=== PATIENT | male | born 1960 | race African-American/Black ===

== ENCOUNTER 2018-05-16 11:32 | Observation (INO) | payer OTHER ==
[2018-05-16] MEDS ORDERED: NITROGLYCERIN OINT 1 INCH/GM PACKET TOPICAL STA (12:04)
[2018-05-16] MEDS ORDERED: ASPIRIN 81 MG PO STA (12:04)
--- NOTE | 2018-05-16 12:10 | ED ---
General Adult HPI - General Chief complaint: Chest Pain Stated complaint: chest pain Time Seen by Provider: 05/16/18 11:55 Source: patient, RN notes reviewed Mode of arrival: ambulatory Limitations: no limitations - History of Present Illness Initial comments: This is a 57 her old male who presents emergency Department complaining of chest pain. Patient states started a few days ago and usually lasts about 10 minutes and been intermittent. Patient states today it came on at work and was occurring much more frequently but still lasting only about 10 minutes. Patient states he was short of breath when it occurred. Patient states the pain radiates to his back as well. Patient denies any diaphoretic episodes associated with the pain. Patient denies any nausea. Patient denied any worsening of the pain with exertion though he has not really exerted himself much. Patient denies any abdominal pain. Patient denies headache patient denies numbness weakness. Patient denies any recent fever chills or cough per patient denies any swelling to legs or calf tenderness. Patient states he is a diabetic with hypertension and does have some family history of heart disease. - Related Data Home Medications Medication Instructions Recorded Confirmed Lisinopril-Hctz 20-25 mg 1 tab PO DAILY 05/16/18 05/16/18 [Zestoretic 20-25] sitaGLIPtin [Januvia] 100 mg PO DAILY 05/16/18 05/16/18 Allergies Allergy/AdvReac Type Severity Reaction Status Date / Time No Known Allergies Allergy Verified 05/16/18 11:50 Review of Systems ROS Statement: Those systems with pertinent positive or pertinent negative responses have been documented in the HPI. ROS Other: All systems not noted in ROS Statement are negative. Past Medical History Past Medical History: Diabetes Mellitus, Hypertension History of Any Multi-Drug Resistant Organisms: None Reported Past Surgical History: No Surgical Hx Reported Past Psychological History: Depression Smoking Status: Never smoker Past Alcohol Use History: Rare Past Drug Use History: None Reported General Exam - General Exam Comments Initial Comments: GENERAL: Patient is well-developed and well-nourished. Patient is nontoxic and well- hydrated and is in mild distress. ENT: Neck is soft and supple. No significant lymphadenopathy is noted. Oropharynx is clear. Moist mucous membranes. Neck has full range of motion without eliciting any pain. EYES: The sclera were anicteric and conjunctiva were pink and moist. Extraocular movements were intact and pupils were equal round and reactive to light. Eyelids were unremarkable. PULMONARY: Unlabored respirations. Good breath sounds bilaterally. No audible rales rhonchi or wheezing was noted. CARDIOVASCULAR: There is a regular rate and rhythm without any murmurs gallops or rubs. ABDOMEN: Soft and nontender with normal bowel sounds. No palpable organomegaly was noted. There is no palpable pulsatile mass. SKIN: Skin is clear with no lesions or rashes and otherwise unremarkable. NEUROLOGIC: Patient is alert and oriented x3. Cranial nerves II through XII are grossly intact. Motor and sensory are also intact. Normal speech, volume and content. Symmetrical smile. MUSCULOSKELETAL: Normal extremities with adequate strength and full range of motion. No lower extremity swelling or edema. No calf tenderness. LYMPHATICS: No significant lymphadenopathy is noted PSYCHIATRIC: Normal psychiatric evaluation. Normal interpersonal interactions appears functionally intact in deals appropriately with others. No signs of depression. No signs of anxiety. Limitations: no limitations Course Vital Signs 05/16/18 05/16/18 11:47 13:34 Temperature 97.9 F Pulse Rate 71 Respiratory 18 Rate Blood Pressure 156/96 153/98 O2 Sat by Pulse 98 Oximetry Medical Decision Making - Medical Decision Making EKG shows normal sinus rhythm at 63 bpm KS interval 170 QRS is under 2 QT interval is 416 QTC is 425 per patient's EKG shows no ST segment elevation or depression or T wave abnormalities are noted. Chest x-ray shows no acute abnormality. Patient is exhibiting stable angina/started the patient heparin. I called Dr. Tavera he agreed to admit the patient admitted the patient I wrote admitting orders. I consult cardiology I continue the heparin and aspirin and Nitropaste on the floor. He is currently chest pain-free. - Lab Data Result diagrams: 05/16/18 12:27 05/16/18 12:27 Lab Results 05/16/18 05/16/18 05/16/18 Range/Units 12:27 12:27 12:27 WBC 7.4 (3.8-10.6) k/uL RBC 4.31 (4.30-5.90) m/uL Hgb 13.0 (13.0-17.5) gm/dL Hct 37.1 L (39.0-53.0) % MCV 86.0 (80.0-100.0) fL MCH 30.2 (25.0-35.0) pg MCHC 35.1 (31.0-37.0) g/dL RDW 12.4 (11.5-15.5) % Plt Count 184 (150-450) k/uL Neutrophils % 66 % Lymphocytes % 24 % Monocytes % 6 % Eosinophils % 2 % Basophils % 1 % Neutrophils # 4.8 (1.3-7.7) k/uL Lymphocytes # 1.8 (1.0-4.8) k/uL Monocytes # 0.4 (0-1.0) k/uL Eosinophils # 0.2 (0-0.7) k/uL Basophils # 0.0 (0-0.2) k/uL PT (9.0-12.0) sec INR (<1.2) APTT (22.0-30.0) sec Sodium 139 (137-145) mmol/L Potassium 4.4 (3.5-5.1) mmol/L Chloride 106 (98-107) mmol/L Carbon Dioxide 23 (22-30) mmol/L Anion Gap 10 mmol/L BUN 18 (9-20) mg/dL Creatinine 1.42 H (0.66-1.25) mg/dL Est GFR (CKD-EPI)AfAm 64 (>60 ml/min/1.73 sqM) Est GFR (CKD-EPI)NonAf 55 (>60 ml/min/1.73 sqM) Glucose 166 H (74-99) mg/dL Calcium 9.7 (8.4-10.2) mg/dL Magnesium 1.8 (1.6-2.3) mg/dL Total Bilirubin 0.7 (0.2-1.3) mg/dL AST 21 (17-59) U/L ALT 28 (21-72) U/L Alkaline Phosphatase 53 (38-126) U/L Total Creatine Kinase 251 H (55-170) U/L CK-MB (CK-2) 1.5 (0.0-2.4) ng/mL CK-MB (CK-2) Rel Index 0.6 Troponin I <0.012 (0.000-0.034) ng/mL Total Protein 7.4 (6.3-8.2) g/dL Albumin 4.0 (3.5-5.0) g/dL 05/16/18 Range/Units 12:27 WBC (3.8-10.6) k/uL RBC (4.30-5.90) m/uL Hgb (13.0-17.5) gm/dL Hct (39.0-53.0) % MCV (80.0-100.0) fL MCH (25.0-35.0) pg MCHC (31.0-37.0) g/dL RDW (11.5-15.5) % Plt Count (150-450) k/uL Neutrophils % % Lymphocytes % % Monocytes % % Eosinophils % % Basophils % % Neutrophils # (1.3-7.7) k/uL Lymphocytes # (1.0-4.8) k/uL Monocytes # (0-1.0) k/uL Eosinophils # (0-0.7) k/uL Basophils # (0-0.2) k/uL PT 10.4 (9.0-12.0) sec INR 1.1 (<1.2) APTT 24.6 (22.0-30.0) sec Sodium (137-145) mmol/L Potassium (3.5-5.1) mmol/L Chloride (98-107) mmol/L Carbon Dioxide (22-30) mmol/L Anion Gap mmol/L BUN (9-20) mg/dL Creatinine (0.66-1.25) mg/dL Est GFR (CKD-EPI)AfAm (>60 ml/min/1.73 sqM) Est GFR (CKD-EPI)NonAf (>60 ml/min/1.73 sqM) Glucose (74-99) mg/dL Calcium (8.4-10.2) mg/dL Magnesium (1.6-2.3) mg/dL Total Bilirubin (0.2-1.3) mg/dL AST (17-59) U/L ALT (21-72) U/L Alkaline Phosphatase (38-126) U/L Total Creatine Kinase (55-170) U/L CK-MB (CK-2) (0.0-2.4) ng/mL CK-MB (CK-2) Rel Index Troponin I (0.000-0.034) ng/mL Total Protein (6.3-8.2) g/dL Albumin (3.5-5.0) g/dL Critical Care Time Critical Care Time: Yes Total Critical Care Time: 35 Disposition Clinical Impression: Unstable angina pectoris Disposition: ADMITTED IP TO THIS HOSP Referrals: Kamille Clinton DO [Primary Care Provider] - 1-2 days Time of Disposition: 14:02
[2018-05-16 12:45] LABS: Basophils % (A) 1 %; Eosinophils # (A) 0.2 k/uL (0-0.7); Eosinophils % (A) 2 %; HCT 37.1 % (39.0-53.0); Lymphocytes # (A) 1.8 k/uL (1.0-4.8); Lymphocytes % (A) 24 %; MCH 30.2 pg (25.0-35.0); MCHC 35.1 g/dL (31.0-37.0); Mean Platelet Volume 7.8; Monocytes # (A) 0.4 k/uL (0-1.0); Monocytes % (A) 6 %; Neutrophils # (A) 4.8 k/uL (1.3-7.7); Neutrophils % (A) 66 %; Platelet Count 184 k/uL (150-450); RBC 4.31 m/uL (4.30-5.90); RDW 12.4 % (11.5-15.5); WBC 7.4 k/uL (3.8-10.6)
[2018-05-16 12:46] LABS: INR 1.1 (<1.2); Partial Thromboplastin Time 24.6 sec (22.0-30.0); Prothrombin Time 10.4 sec (9.0-12.0)
[2018-05-16 12:50] LABS: Calcium 9.7 mg/dL (8.4-10.2); Magnesium 1.8 mg/dL (1.6-2.3); Potassium 4.4 mmol/L (3.5-5.1); Total Bilirubin 0.7 mg/dL (0.2-1.3); Total Protein 7.4 g/dL (6.3-8.2)
--- NOTE | 2018-05-16 12:50 | XR ---
EXAMINATION TYPE: XR chest 2V DATE OF EXAM: 05/16/2018 COMPARISON: None INDICATION: Chest pain TECHNIQUE: Frontal and lateral views of the chest are obtained. FINDINGS: The heart size is normal. The pulmonary vasculature is normal. The lungs are clear. IMPRESSION: 1. No acute pulmonary process.
[2018-05-16 13:00] LABS: Creatine Kinase 251 U/L (55-170)
[2018-05-16 13:13] LABS: Creatine Kinase MB 1.5 ng/mL (0.0-2.4); Troponin I <0.012 ng/mL (0.000-0.034)
[2018-05-16] MEDS ORDERED: HEPARIN SODIUM,PORCINE 5,000 UNIT/ML 1 ML VIAL IV ONE (13:52)
[2018-05-16] MEDS ORDERED: HEPARIN SOD,PORK IN 0.45% NACL 25,000 UNIT in 0.45% NACL 1 500ML.BAG IV SCH (14:00)
[2018-05-16] MEDS ORDERED: NITROGLYCERIN SL TABS 0.4 MG TAB SUBLINGUAL PRN (14:03)
--- NOTE | 2018-05-16 15:49 | P.HPIM ---
History of Present Illness H&P Date: 05/16/18 Chief Complaint: Chest pain This is a 57-year-old male, patient of [facility]. He has a known past medical history of diabetes mellitus type 2 and hypertension. He presents to the emergency room with complaints of chest pain. Patient was seen and examined in the ER. He reports that he's had intermittent chest pain for about 3 days. The pain is located in the left side of his chest it does radiate to his back at times. Occasionally has some shortness of breath. Denies any nausea or vomiting. He reports the chest pain lasts for about 10 minutes. There is no associated symptoms to worsen pain or decrease the pain. He is concerned because he is diabetic and wanted to have it checked out. Patient also reports that Sunday morning he had awoken with pain behind his left knee and was also having the intermittent chest pain. As the day progressed the pain behind the left knee subsided. And has not reoccurred. He denies any recent traveling for long sets. Patient denies any cough, fever, chills, sweats. Denies any nausea vomiting bowel movement changes or urinary symptoms. First troponin was negative EKG shows a normal sinus rhythm chest x-rays negative. Creatinine is elevated at 1.42. Patient reports back in October at Dr. Clinton's office they noted that he had a rise in his creatinine and his metformin was discontinued at that time. He was started on Januvia. He's been placed on aspirin, IV heparin as well as on nitro paste for his chest pain. Cardiology has been consulted. Patient denies ever having any stress test. After discussing with [facility] at present the patient does have some chronic kidney disease. In May 2017 creatinine was 1.4 in September 2017 creatinine 1.6. Nursing staff from [facility] reports that metformin was discontinued in October 2017. Review of Systems Please refer to HPI otherwise unremarkable Past Medical History Past Medical History: Diabetes Mellitus, Hypertension History of Any Multi-Drug Resistant Organisms: None Reported Past Surgical History: No Surgical Hx Reported Past Psychological History: Depression Smoking Status: Never smoker Past Alcohol Use History: Rare Past Drug Use History: None Reported Medications and Allergies Home Medications Medication Instructions Recorded Confirmed Type Lisinopril-Hctz 20-25 mg 1 tab PO DAILY 05/16/18 05/16/18 History [Zestoretic 20-25] sitaGLIPtin [Januvia] 100 mg PO DAILY 05/16/18 05/16/18 History Allergies Allergy/AdvReac Type Severity Reaction Status Date / Time No Known Allergies Allergy Verified 05/16/18 11:50 Physical Exam Vitals: Vital Signs Temp Pulse Resp BP Pulse Ox 05/16/18 13:34 153/98 05/16/18 11:47 97.9 F 71 18 156/96 98 Intake and Output 05/16/18 05/16/18 05/16/18 06:59 14:59 22:59 Other: Weight 117.934 kg Head normocephalic Neck supple Lungs clear to auscultation bilaterally no wheezing or crackles. No chest wall tenderness Heart regular rate and rhythm S1-S2, no rub or gallop Abdomen is soft nontender nondistended positive bowel sounds no hepatosplenomegaly Extremities no edema tenderness or leg tenderness with palpation Neuro alert and orientated to 3 Results CBC & Chem 7: 05/16/18 12:27 05/16/18 12:27 Labs: Abnormal Lab Results - Last 24 Hours (Table) 05/16/18 05/16/18 05/16/18 Range/Units 12:27 12:27 12:27 Hct 37.1 L (39.0-53.0) % Creatinine 1.42 H (0.66-1.25) mg/dL Glucose 166 H (74-99) mg/dL Total Creatine Kinase 251 H (55-170) U/L Assessment and Plan Assessment: 1. Chest pain: First troponin is negative. Cardiology has been consulted. EKG normal sinus rhythm. Chest x-rays negative. Cardiac workup in progress. Continue with IV heparin and Nitropaste. Check lipid panel. Continue with telemetry monitoring. Check d-dimer patient also had recent pain behind the left leg with chest pains. Also will Doppler the left leg to rule out DVT 2. Diabetes mellitus type 2: Patient had metformin discontinued in october due to a rising creatinine in the outpatient setting and was started on Januvia. Check A1c. Add sliding scale coverage 3. Essential hypertension: continue Zestoretic 4. Chronic kidney disease, stage 2. Creatinine in May 2017 have been 1.4 in September 2017 creatinine was 1.6. Will monitor closely while we continue the Zestoretic GI prophylaxis Pepcid and DVT prophylaxis IV heparin Time with Patient: Greater than 30 (Greater than 60% of the total time spent in counseling and coordination of care.I performed an examination of the patient and discussed their management with the physician Supply Cataloguer. I have reviewed the Physician Supply Cataloguer's notes and agree with the documented findings and plan of care)
[2018-05-16 17:35] LABS: Glucose,Whole Blood 143 mg/dL (75-99)
--- NOTE | 2018-05-16 18:04 | US ---
EXAMINATION TYPE: US venous doppler duplex LE LT DATE OF EXAM: 05/16/2018 5:54 PM COMPARISON: NONE CLINICAL HISTORY: leg pain, rule out DVT. Left leg pain, exam done portable. SIDE PERFORMED: Left TECHNIQUE: The lower extremity deep venous system is examined utilizing real time linear array sonog ivett with graded compression, doppler sonography and color-flow sonography. VESSELS IMAGED: External Iliac Vein (EIV) Common Femoral Vein Deep Femoral Vein Greater Saphenous Vein * Femoral Vein Popliteal Vein Small Saphenous Vein * Proximal Calf Veins (* superficial vessels) Left Leg: Appears negative for DVT IMPRESSION: Normal exam. No evidence of deep venous thrombosis in the left leg.
[2018-05-16 19:02] LABS: Creatine Kinase 228 U/L (55-170)
[2018-05-16 19:16] LABS: Creatine Kinase MB 1.3 ng/mL (0.0-2.4); Troponin I <0.012 ng/mL (0.000-0.034)
[2018-05-16 20:22] LABS: Glucose,Whole Blood 247 mg/dL (75-99)
[2018-05-16] MEDS: NITROGLYCERIN OINT 1 INCH/GM PACKET TOPICAL SCH (21:09)
[2018-05-16] MEDS: INSULIN ASPART 100 UNIT/ML 1 ML 10 ML VIAL SQ SCH ×2 (21:28)
[2018-05-17] MEDS: NITROGLYCERIN OINT 1 INCH/GM PACKET TOPICAL SCH ×2 (00:14→05:58)
[2018-05-17 01:17] LABS: Creatine Kinase 204 U/L (55-170)
[2018-05-17 01:29] LABS: Troponin I <0.012 ng/mL (0.000-0.034)
[2018-05-17 05:13] VITALS: RESP 18
[2018-05-17 06:02] LABS: Hemoglobin A1C 7.3 % (4.0-6.0)
[2018-05-17 06:45] LABS: Glucose,Whole Blood 177 mg/dL (75-99)
[2018-05-17 07:37] LABS: Basophils # (A) 0.1 k/uL (0-0.2); Basophils % (A) 1 %; Eosinophils # (A) 0.2 k/uL (0-0.7); Eosinophils % (A) 3 %; HCT 38.2 % (39.0-53.0); Lymphocytes # (A) 1.7 k/uL (1.0-4.8); Lymphocytes % (A) 22 %; MCH 29.7 pg (25.0-35.0); MCHC 34.1 g/dL (31.0-37.0); Mean Platelet Volume 7.7; Monocytes # (A) 0.4 k/uL (0-1.0); Monocytes % (A) 6 %; Neutrophils # (A) 5.2 k/uL (1.3-7.7); Neutrophils % (A) 67 %; Platelet Count 177 k/uL (150-450); RBC 4.39 m/uL (4.30-5.90); RDW 12.5 % (11.5-15.5); WBC 7.8 k/uL (3.8-10.6)
[2018-05-17 08:13] LABS: Albumin 3.8 g/dL (3.5-5.0); Calcium 9.3 mg/dL (8.4-10.2); Potassium 4.4 mmol/L (3.5-5.1); Total Bilirubin 0.7 mg/dL (0.2-1.3); Total Protein 7.1 g/dL (6.3-8.2)
[2018-05-17] MEDS: INSULIN ASPART 100 UNIT/ML 1 ML 10 ML VIAL SQ SCH ×2 (08:18→13:27)
[2018-05-17] MEDS ORDERED: LINAGLIPTIN 5 MG TABLET PO SCH (09:00)
[2018-05-17] MEDS ORDERED: FAMOTIDINE 20 MG TAB PO SCH (09:00)
[2018-05-17] MEDS ORDERED: LISINOPRIL 20 MG TAB PO SCH (09:00)
[2018-05-17] MEDS ORDERED: ASPIRIN 325 MG TAB PO SCH (09:00)
[2018-05-17] MEDS ORDERED: ASPIRIN 81 MG PO SCH (09:00)
[2018-05-17] MEDS ORDERED: LISINOPRIL-HCTZ 20-25 MG 1 EACH TAB PO SCH (09:00)
--- NOTE | 2018-05-17 10:17 | ECHOF ---
Referral Reason:cp MEASUREMENTS -------- HEIGHT: 162.6 cm WEIGHT: 120.7 kg BP: IVSd: 1.5 cm (0.6 - 1.1) LVIDd: 3.4 cm (3.9 - 5.3) LVPWd: 1.7 cm (0.6 - 1.1) IVSs: 1.7 cm LVIDs: 3.5 cm LVPWs: 1.3 cm LA Diam: 4.0 cm (2.7 - 3.8) LAESV Index (A-L): 27.27 ml/m Ao Diam: 3.3 cm (2.0 - 3.7) AV Cusp: 1.7 cm (1.5 - 2.6) LA Diam: 3.5 cm (2.7 - 3.8) MV EXCURSION: 23.254 mm (> 18.000) MV EF SLOPE: 127 mm/s (70 - 150) EPSS: 0.6 cm MV E Gabe: 0.65 m/s MV DecT: 190 ms MV A Gabe: 0.75 m/s MV E/A Ratio: 0.87 RAP: 5.00 mmHg RVSP: 30.57 mmHg FINDINGS -------- Sinus rhythm. This was a technically good study. Grossly normal LV size and systolic function. Unable to comment on regional wall motion. The left v entricular size is normal. There is moderate concentric left ventricular hypertrophy. Overall lef t ventricular systolic function is low-normal with, an EF between 50 - 55 %. The right ventricle is normal in size. The left atrial size is normal. The right atrial size is normal. The aortic valve is trileaflet, and appears structurally normal. No aortic stenosis or regurgitation. Mild mitral annular calcification present. Mild mitral regurgitation is present. Mild tricuspid regurgitation present. There is no evidence of pulmonary hypertension. The right v entricular systolic pressure, as measured by Doppler, is 30.57mmHg. There is no pulmonic regurgitation present. The aortic root size is normal. There is no pericardial effusion. CONCLUSIONS -------- 1. Grossly normal LV size and systolic function. Unable to comment on regional wall motion. 2. The left ventricular size is normal. 3. There is moderate concentric left ventricular hypertrophy. 4. Overall left ventricular systolic function is low-normal with, an EF between 50 - 55 %. 5. The right ventricle is normal in size. 6. The left atrial size is normal. 7. The right atrial size is normal. 8. The aortic valve is trileaflet, and appears structurally normal. No aortic stenosis or regurgitati on. 9. Mild mitral annular calcification present. 10. Mild mitral regurgitation is present. 11. Mild tricuspid regurgitation present. 12. There is no evidence of pulmonary hypertension. 13. The right ventricular systolic pressure, as measured by Doppler, is 30.57mmHg. 14. There is no pulmonic regurgitation present. 15. The aortic root size is normal. 16. There is no pericardial effusion. HEAVY THREADER: Kori Williamson RDCS
[2018-05-17] MEDS ORDERED: amLODIPine 10 MG TAB PO SCH (11:15)
[2018-05-17] MEDS ORDERED: ATORVASTATIN 40 MG TAB PO SCH (11:15)
--- NOTE | 2018-05-17 11:24 | P.CRDCN ---
History of Present Illness History of present illness: This is a pleasant 57-year-old male past medical history significant for hypertension and diabetes mellitus. He denies history of coronary artery disease or dyslipidemia. We have been asked to see him in consultation for chest pain. He states for the previous 3 days he has been experiencing a pressure like sensation in the mid-sternal region. The discomfort comes with no specific aggravating factor and lasts approximately 5- 10 minutes. Going away on its own with no specific alleviating factors. This has been intermittent at rest as well as with exertion. Sometimes the pain radiates through to the back. He denies shortness of breath, dizziness, nausea, vomiting or palpitations. No radiation to the arm, neck or jaw. EKG reveals sinus mechanism with no acute ST or T-wave abnormalities. Chest xray negative for an acute cardiopulmonary process. Laboratory data reviewed, WBC 7.8, hemoglobin 13, platelets 177, potassium 4.4, creatinine 1.56, magnesium 1.8, cardiac enzymes negative x3, LDL 146, HDL 35, total cholesterol 207. Current cardiac medications include zestoretic 20/25 mg daily. He is not on a statin at home. At the time of my exam: CONSTITUTIONAL: Denies fever. Denies chills. EYES: Denies blurred vision. Denies vision changes. Denies eye pain. EARS, NOSE, MOUTH & THROAT: Denies headache. Denies sore throat. Denies ear pain. CARDIOVASCULAR: Denies chest pain. Denies shortness of breath. Denies orthopnea. Denies PND. Denies palpitations. RESPIRATORY: Denies cough. GASTROINTESTINAL: Denies abdominal pain. Denies diarrhea. Denies constipation. Denies nausea. Denies vomiting. MUSCULOSKELETAL: Denies myalgias. INTEGUMENTARY: Denies pruitis. Denies rash. NEUROLOGIC: Denies numbness. Denies tingling. Denies weakness. PSYCHIATRIC: Denies anxiety. Denies depression. ENDOCRINE: Denies fatigue. Denies weight change. Denies polydipsia. Denies polyurina. GENITOURINARY: Denies burning, hematuria or urgency with micturation. HEMATOLOGIC: Denies history of anemia. Denies bleeding. Blood pressure 165/102 heart rate 68 afebrile maintaining oxygen saturation on room air GENERAL: This is a 57-year-old -[place] male in no apparent distress at the time of my examination. HEENT: Head is atraumatic, normocephalic. Pupils are equal, round. Sclerae anicteric. Conjunctivae are clear. Mucous membranes of the mouth are moist. Neck is supple. There is no jugular venous distention. No carotid bruit is heard. LUNGS: Clear to auscultation no wheezes, rales or rhonchi. No chest wall tenderness is noted on palpation or with deep breathing. HEART: Regular rate and rhythm without murmurs, rubs or gallops. S1 and S2 heard. ABDOMEN: Soft, nontender. Bowel sounds are heard. No organomegaly noted. EXTREMITIES: No evidence of peripheral edema and no calf tenderness noted. VASCULAR: Radial and dorsalis pedis pulses palpated, no evidence of clubbing. NEUROLOGIC: Patient is awake, alert and oriented x3. ASSESSMENT Chest pain, atypical. An acute coronary event has been ruled out with no EKG evidence of ischemia negative cardiac enzymes. Hypertension, uncontrolled Diabetes mellitus Dyslipidemia Chronic kidney disease, GFR 57 PLAN Obtain 2D echocardiogram and doppler study to assess cardiac structure and function. Perform stress echocardiogram to assess for stress induced ischemia. Start him on atorvastatin 40 mg daily, follow up with LFT's in 3 months. Change his blood pressure regiemn to amlodipine 10 mg daily. Discontinue zestoretic. Advised him to obtain blood pressure cuff and check his blood pressures daily at home. Keep a journal of his readings for his follow up appointment with Dr. Cortes. If stress test is normal he is stable from a cardiac perspective. Thank you kindly for this consultation. Nurse Practitioner note has been reviewed, I agree with a documented findings and plan of care. Patient was seen and examined. Past Medical History Past Medical History: Diabetes Mellitus, Hypertension Additional Past Medical History / Comment(s): 05/16/18 pt wants flu vaccine this admit. History of Any Multi-Drug Resistant Organisms: None Reported Past Surgical History: No Surgical Hx Reported Past Anesthesia/Blood Transfusion Reactions: No Reported Reaction Past Psychological History: Depression Smoking Status: Never smoker Past Alcohol Use History: Rare Past Drug Use History: None Reported - Past Family History Mother Family Medical History: Diabetes Mellitus, Hypertension Father Family Medical History: Diabetes Mellitus Medications and Allergies Home Medications Medication Instructions Recorded Confirmed Type Lisinopril-Hctz 20-25 mg 1 tab PO DAILY 05/16/18 05/16/18 History [Zestoretic 20-25] sitaGLIPtin [Januvia] 100 mg PO DAILY 05/16/18 05/16/18 History Allergies Allergy/AdvReac Type Severity Reaction Status Date / Time No Known Allergies Allergy Verified 05/16/18 11:50 Physical Exam Vitals: Vital Signs Temp Pulse Pulse Resp BP BP Pulse Ox 05/17/18 07:19 98.0 F 60 18 165/102 98 05/17/18 04:00 97.9 F 62 18 143/95 100 05/17/18 03:46 16 05/17/18 00:00 16 05/16/18 23:36 98.5 F 86 16 151/94 99 05/16/18 20:00 98.1 F 82 16 149/77 98 05/16/18 17:55 98 05/16/18 17:45 98.0 F 68 18 161/99 100 05/16/18 17:00 65 18 153/77 100 05/16/18 16:45 65 18 139/95 99 05/16/18 16:28 68 18 149/94 98 05/16/18 16:00 67 18 166/91 99 05/16/18 13:34 153/98 05/16/18 11:47 97.9 F 71 18 156/96 98 Intake and Output 05/16/18 05/17/18 05/17/18 22:59 06:59 14:59 Intake Total 118 Balance 118 Intake: Oral 118 Other: # Voids 1 2 Weight 120.7 kg Results 05/17/18 07:17 05/17/18 07:17 Cardiac Enzymes 05/16/18 05/16/18 05/16/18 Range/Units 12:27 12:27 18:07 AST 21 (17-59) U/L CK-MB (CK-2) 1.5 1.3 (0.0-2.4) ng/mL Troponin I <0.012 <0.012 (0.000-0.034) ng/mL 05/17/18 Range/Units 00:45 AST (17-59) U/L CK-MB (CK-2) 1.0 (0.0-2.4) ng/mL Troponin I <0.012 (0.000-0.034) ng/mL Coagulation 05/16/18 Range/Units 12:27 PT 10.4 (9.0-12.0) sec APTT 24.6 (22.0-30.0) sec CBC 05/16/18 05/17/18 Range/Units 12:27 07:17 WBC 7.4 7.8 (3.8-10.6) k/uL RBC 4.31 4.39 (4.30-5.90) m/uL Hgb 13.0 13.0 (13.0-17.5) gm/dL Hct 37.1 L 38.2 L (39.0-53.0) % Plt Count 184 177 (150-450) k/uL Comprehensive Metabolic Panel 05/16/18 Range/Units 12:27 Sodium 139 (137-145) mmol/L Potassium 4.4 (3.5-5.1) mmol/L Chloride 106 (98-107) mmol/L Carbon Dioxide 23 (22-30) mmol/L BUN 18 (9-20) mg/dL Creatinine 1.42 H (0.66-1.25) mg/dL Glucose 166 H (74-99) mg/dL Calcium 9.7 (8.4-10.2) mg/dL AST 21 (17-59) U/L ALT 28 (21-72) U/L Alkaline Phosphatase 53 (38-126) U/L Total Protein 7.4 (6.3-8.2) g/dL Albumin 4.0 (3.5-5.0) g/dL Current Medications Generic Name Dose Route Start Last Admin Trade Name Freq PRN Reason Stop Dose Admin Aspirin 325 mg 05/17/18 09:00 Aspirin PO DAILY [facility] Famotidine 20 mg 05/17/18 09:00 Pepcid PO DAILY [facility] Lisinopril/HCTZ 1 each 05/17/18 09:00 Zestoretic 20-25 PO DAILY [facility] Heparin Sodium/Sodium Chloride 500 mls @ 20 mls/hr 05/16/18 14:00 05/16/18 16 :27 25,000 unit/ Sodium Chloride IV Not Given .Q24H CHELLE Protocol 8.48 UNITS/KG/HR Insulin Aspart 0 unit 05/16/18 17:30 05/16/18 21:28 Novolog SQ 5 unit ACHS CHELLE Administration Protocol Linagliptin 5 mg 05/17/18 09:00 Tradjenta PO DAILY CHELLE Nitroglycerin 1 inch 05/16/18 18:00 05/17/18 05:58 Nitro-Bid Oint TOPICAL Not Given Q6HR [facility] Nitroglycerin 0.4 mg 05/16/18 14:03 Nitrostat SUBLINGUAL Q5M PRN Chest Pain Intake and Output 05/16/18 05/17/18 05/17/18 22:59 06:59 14:59 Intake Total 118 Balance 118 Intake: Oral 118 Other: # Voids 1 2 Weight 120.7 kg 05/17/18 07:17 05/16/18 12:27
[2018-05-17 11:33] VITALS: PULSE 79; TEMP 97.7
[2018-05-17 11:43] LABS: Glucose,Whole Blood 165 mg/dL (75-99)
--- NOTE | 2018-05-17 12:11 | ECHOS ---
STRESS ECHOCARDIOGRAM INDICATIONS: Chest pain BASELINE HEART RATE: 62 BASELINE BLOOD PRESSURE: 153/68 MAXIMUM HEART RATE: 150 MAXIMUM BLOOD PRESSURE: 214/85 85% MPHR: 139 100% MPHR: 164 METS: 6.0 MAXIMUM STAGE REACHED: 2 TOTAL EXERCISE TIME: 5:45 CLINICAL INFORMATION: Baseline EKG shows sinus rhythm, normal axis, normal intervals. Patient exercised on Dyllan protocol for a total of 5 minutes and 45 seconds achieving 6 METs, 91% of predicted maximal heart rate without chest pain or diagnostic ST-segment depression. Baseline echo shows normal left ventricular size, wall motion, and systolic function. Postexercise, there is normal hyperdynamic response of all segments of myocardium noted. CONCLUSIONS: 1. Limited exercise tolerance. 2. Negative stress test by EKG criteria. 3. Negative stress echo. MMODL / IJN: [id number] /
[2018-05-17 13:36] VITALS: BP 159/75
--- NOTE | 2018-05-17 13:50 | P.DS ---
Providers Date of admission: 05/16/18 14:04 Expected date of discharge: 05/17/18 Attending physician: Jaime Tavera Consults: 05/16/18 14:03 Consult Physician Urgent Consulting Provider: [facility] Consult Reason/Comments: Unstable angina Do you want consulting provider notified?: Yes Primary care physician: Kamille Clinton [facility] Course: Discharge diagnosis 1. Chest pain: CA ruled out. Troponins negative 3 sets. EKG normal sinus rhythm. Chest x-rays negative. D-dimer within normal range. Stress echo was negative. Per cardiology stress echo showed no wall motion abnormality. Echo shows an EF of 50-55%. Cardiology has cleared patient for discharge. 2. Diabetes mellitus type 2: Patient had metformin discontinued in october due to a rising creatinine in the outpatient setting and was started on Januvia. A1c 7.3 3. Essential hypertension: Uncontrolled blood pressures. Cardiology has discontinue the Zestoretic and added Norvasc 10 mg daily. Prior to Norvasc blood pressure was 180/102. After Norvasc blood pressure 159/75 4. Chronic kidney disease, stage 2. Creatinine in May 2017 have been 1.4 in September 2017 creatinine was 1.6. Creatinine at discharge 1.56. Zestoretic discontinued during this admission per cardiology Hospital course This is a 57-year-old male, patient of [facility]. He has a known past medical history of diabetes mellitus type 2 and hypertension. He presents to the emergency room with complaints of chest pain. Patient was seen and examined in the ER. He reports that he's had intermittent chest pain for about 3 days. The pain is located in the left side of his chest it does radiate to his back at times. Occasionally has some shortness of breath. Denies any nausea or vomiting. He reports the chest pain lasts for about 10 minutes. There is no associated symptoms to worsen pain or decrease the pain. He is concerned because he is diabetic and wanted to have it checked out. Patient also reports that Sunday morning he had awoken with pain behind his left knee and was also having the intermittent chest pain. As the day progressed the pain behind the left knee subsided. And has not reoccurred. He denies any recent traveling for long sets. Patient denies any cough, fever, chills, sweats. Denies any nausea vomiting bowel movement changes or urinary symptoms. First troponin was negative EKG shows a normal sinus rhythm chest x-rays negative. Creatinine is elevated at 1.42. Patient reports back in October at Dr. Clinton's office they noted that he had a rise in his creatinine and his metformin was discontinued at that time. He was started on Januvia. He's been placed on aspirin, IV heparin as well as on nitro paste for his chest pain. Cardiology has been consulted. Patient denies ever having any stress test. After discussing with [facility] at present the patient does have some chronic kidney disease. In May 2017 creatinine was 1.4 in September 2017 creatinine 1.6. Nursing staff from [facility] reports that metformin was discontinued in October 2017. Patient underwent cardiac workup troponins were negative 3 sets. Stress echo was negative. Patient has been chest pain-free. Cardiology has cleared him for discharge. During this admission Lipitor 40 mg daily was added and Norvasc 10 mg daily. Patient did have uncontrolled blood pressures during this admission. Cardiology recommended to Norvasc 10 mg daily and discontinue the Zestoretic. Recommend to continue monitoring blood pressures at home and record. Will have patient bring those readings into his PCP and cardiology. Patient of up with his PCP in 3 days for blood pressure check and BMP check. Continue to monitor kidney functions closely. Patient's symptoms have improved. He is medically stable for discharge. Please refer to chart for any further details. I performed an examination of the patient and discussed their management with the physician Medical Reception. I have reviewed the Physician Medical Reception's notes and agree with the documented findings and plan of care Patient Condition at Discharge: Stable Plan - Discharge Summary Discharge Rx Participant: Yes New Discharge Prescriptions: New amLODIPine [Norvasc] 10 mg PO DAILY #90 tab Atorvastatin [Lipitor] 40 mg PO DAILY #90 tab Continue sitaGLIPtin [Januvia] 100 mg PO DAILY Discontinued Lisinopril-Hctz 20-25 mg [Zestoretic 20-25] 1 tab PO DAILY Discharge Medication List sitaGLIPtin [Januvia] 100 mg PO DAILY 05/16/18 [History] Atorvastatin [Lipitor] 40 mg PO DAILY #90 tab 05/17/18 [Rx] amLODIPine [Norvasc] 10 mg PO DAILY #90 tab 05/17/18 [Rx] Follow up Appointment(s)/Referral(s): Von Cortes MD [STAFF PHYSICIAN] - 2 Weeks Kamille Clinton DO [Primary Care Provider] - 3 Days Ambulatory/Diagnostic Orders: Basic Metabolic Panel [LAB.AMB] Time Frame: 3 Days, Location: None Selected Activity/Diet/Wound Care/Special Instructions: Diet: diabetic, cardiac Activity: as tolerated Check BP daily at home and record. Take results to PCP office at follow up Discharge Disposition: HOME SELF-CARE
--- NOTE | 2018-05-27 07:25 | CDI ---
Dear Dr. Tavera, Uncontrolled Diabetes was documented in the consult assessment. Clinical indicators: Pt's labs indicate glucose at 143, 247, 177, 165 Based on the clinical indicators and your professional judgement. Please complete by selecting one of the options below. -Diabetes with hyperglycemia -Diabetes uncontrolled -Unable to determine -No further clarification needed. MTDD
== END 2018-05-17 14:30 | disposition home or self-care (01) ==
LOC: EC 11:32 → 3SCARD 14:04 → 1SOBS 16:37
PROVIDERS: ADMIT Internal Medicine; ATTEND Internal Medicine
DX: R07.89 Other chest pain (principal); I12.9 Hypertensive chronic kidney disease with stage 1 through stage 4 chronic kidney disease, or unspecified chronic kidney disease; E11.22 Type 2 diabetes mellitus with diabetic chronic kidney disease; N18.2 Chronic kidney disease, stage 2 (mild); R06.02 Shortness of breath; M25.562 Pain in left knee; Z82.49 Family history of ischemic heart disease and other diseases of the circulatory system; Z79.84 Long term (current) use of oral hypoglycemic drugs; Z79.899 Other long term (current) drug therapy; F32.9 Major depressive disorder, single episode, unspecified; E78.5 Hyperlipidemia, unspecified
CPT/HCPCS: 99291 ×2; 36415; 93005; 93306; 93351; 85379; 80061; 80053 ×2; 82550 ×2; 82553 ×2; 83735; 84484 ×2; 85025 ×2; 85610; 85730; 83036; 71046; 93971; G0378 ×3

== ENCOUNTER 2018-11-15 07:54 | Day surgery (SDC) | payer OTHER ==
[2018-11-13 10:51] VITALS: BMI 37.3
[2018-11-15] MEDS ORDERED: LACTATED RINGERS 1,000 ML IV ONE (08:28)
[2018-11-15] MEDS ORDERED: LIDOCAINE 1% 20 ML VIAL (10MG/ML) FOR IV START INTRADERMA ONE (08:28)
[2018-11-15 08:30] VITALS: TEMP 97.9
[2018-11-15 08:35] LABS: Glucose,Whole Blood 210 mg/dL (75-99)
[2018-11-15] MEDS ORDERED: PROPOFOL 10 MG/ML 20 ML VIAL IV ONE (08:52)
--- NOTE | 2018-11-15 08:54 | P.GSHP ---
History of Present Illness H&P Date: 11/15/18 Chief Complaint: Screening colonoscopy This is a 58-year-old male who presents today for screening colonoscopy. Patient denies a significant GI complaints. Past Medical History Past Medical History: Diabetes Mellitus, Hypertension Additional Past Medical History / Comment(s): 05/16/18 pt wants flu vaccine this admit. History of Any Multi-Drug Resistant Organisms: None Reported Past Surgical History: Tonsillectomy Past Anesthesia/Blood Transfusion Reactions: No Reported Reaction Smoking Status: Never smoker - Past Family History Mother Family Medical History: No Reported History Father Family Medical History: Diabetes Mellitus Medications and Allergies Home Medications Medication Instructions Recorded Confirmed Type sitaGLIPtin [Januvia] 100 mg PO DAILY 05/16/18 11/13/18 History amLODIPine BESYLATE/BENAZEPRIL 1 cap PO DAILY 11/13/18 11/13/18 History [Lotrel 10-20 MG] traZODone HCL 100 mg PO HS 11/13/18 11/13/18 History Allergies Allergy/AdvReac Type Severity Reaction Status Date / Time No Known Allergies Allergy Verified 11/15/18 08:19 Surgical - Exam Vital Signs Temp Pulse Resp BP Pulse Ox 97.9 F 73 16 172/86 98 11/15/18 08:28 11/15/18 08:28 11/15/18 08:28 11/15/18 08:28 11/15/18 08:28 - General well developed, well nourished, no distress - Eyes PERRL - ENT normal pinna - Neck no masses - Respiratory normal expansion - Cardiovascular Rhythm: regular - Abdomen Abdomen: soft, non tender Results - Labs Abnormal Lab Results - Last 24 Hours (Table) 11/15/18 Range/Units 08:29 POC Glucose (mg/dL) 210 H (75-99) mg/dL Assessment and Plan Assessment: We'll perform screening colonoscopy.
--- NOTE | 2018-11-15 09:09 | P.OP ---
Date of Procedure: 11/15/18 Preoperative Diagnosis: Screening colonoscopy Postoperative Diagnosis: Normal colonoscopy Procedure(s) Performed: Colonoscopy Anesthesia: MAC Surgeon: Agustin Allan Pathology: none sent Condition: stable Disposition: PACU Description of Procedure: PROCEDURE: The patient was placed on the endoscopy table in the lateral position. Digital rectal examination was performed which revealed no abnormalities. The prostate was symmetrical without nodules. Flexible colonoscope was then placed in the patient's anus and passed throughout the entire colon. The ileocecal valve was visualized. The cecum, ascending, transverse, descending and sigmoid colon were normal. The rectum was normal as well. There were no masses, polyps or diverticula noted in the entire colon. SUMMARY OF FINDINGS: Normal colonoscopy.
[2018-11-15 09:11] VITALS: RESP 18
[2018-11-15 09:28] VITALS: BP 115/78; PULSE 75
== END 2018-11-15 09:52 | disposition home or self-care (01) ==
LOC: ORWHC2ENDO 07:54
PROVIDERS: ATTEND Surgery
DX: Z12.11 Encounter for screening for malignant neoplasm of colon (principal); I10 Essential (primary) hypertension; E11.9 Type 2 diabetes mellitus without complications; Z79.84 Long term (current) use of oral hypoglycemic drugs; Z79.899 Other long term (current) drug therapy
CPT/HCPCS: J2704; G0121